=== PATIENT | female | born 1970 | race Caucasian/White ===

== ENCOUNTER 2018-07-30 10:18 | Emergency (ER) | payer BC, OTHER ==
--- NOTE | 2018-07-30 11:58 | RAD REPORT ---
EXAM DESCRIPTION: CT - Head Brain Wo Cont - 07/30/2018 11:46 am CLINICAL HISTORY: VISUAL DISTURBANCES Headache, drowsiness COMPARISON: No comparisons TECHNIQUE: All CT scans are performed using dose optimization technique as appropriate and may inclu de automated exposure control or mA/KV adjustment according to patient size. FINDINGS: No intracranial hemorrhage, hydrocephalus or extra-axial fluid collection.No areas of brai n edema or evidence of midline shift. The paranasal sinuses and mastoids are clear. The calvarium is intact. IMPRESSION: No acute intracranial abnormality.
--- NOTE | 2018-07-30 12:18 | RAD REPORT ---
EXAM DESCRIPTION: Chetna Negron (2 Views)07/30/2018 12:08 pm CLINICAL HISTORY: Hypertension COMPARISON: None FINDINGS: The lungs appear clear of acute infiltrate. The heart is normal size IMPRESSION: No acute abnormalities displayed
--- NOTE | 2018-07-30 13:40 | EDPHYS ---
Physician Documentation [facility] Name: Bisi Means Age: 48 yrs Sex: Female : 1970 Arrival Date: 07/30/2018 Time: 10:21 Bed 18 Private MD: Selvin Contreras ED Physician Roman Almazan HPI: 07/30 11:37 This 48 yrs old Female presents to ER via Ambulatory with complaints of snw Vision Problem, LIGHTHEADED. 11:37 Onset: The symptoms/episode began/occurred suddenly, this morning. Associated signs and snw symptoms: Pertinent positives: crescent shaped area of visual disturbance with both monocular and binocular vision. S/s improved since arrival. Modifying factors: The patient symptoms are alleviated by rest. The patient has not experienced similar symptoms in the past. The patient has been recently seen by a physician: a smart energy specialist. Doxazosin added to HCTZ and amlodipine 2 days ago. Pt states she was on Telmisartan for about two weeks and it caused a severe headache. 2 days ago that was changed to Doxazosin, it does cause a brief, lesser headache but it resolves. 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 tw2 Historical: - Allergies: 11:19 No Known Allergies; dm5 - Home Meds: 11:34 doxazosin 4 mg oral tab 1 tab once daily [Active]; hydrochlorothiazide 25 mg Oral tab 1 tw2 tab once daily [Active]; olmesartan oral 40 mg oral 1 tab [Active]; amlodipine 10 mg tab 1 tab nightly [Active]; - PMHx: 11:17 Hypertension; dm5 - PSHx: 11:34 None; tw2 - Immunization history:: Adult Immunizations. - Social history:: Smoking status: . - Ebola Screening: : Patient denies travel to an Ebola-affected area in the 21 days before illness onset. ROS: 11:41 Constitutional: Negative for fever, chills, and weight loss, ENT: Negative for injury, snw pain, and discharge, Neck: Negative for injury, pain, and swelling, Cardiovascular: Negative for chest pain, palpitations, and edema, Respiratory: Negative for shortness of breath, cough, wheezing, and pleuritic chest pain, Abdomen/GI: Negative for abdominal pain, nausea, vomiting, diarrhea, and constipation, Back: Negative for injury and pain, : Negative for injury, bleeding, discharge, and swelling, MS/Extremity: Negative for injury and deformity, Skin: Negative for injury, rash, and discoloration, Neuro: Negative for headache, weakness, numbness, tingling, and seizure. 11:41 Psych: Positive for anxiety. Exam: 11:41 Constitutional: This is a well developed, well nourished patient who is awake, alert, snw and in no acute distress. Head/Face: Normocephalic, atraumatic. Eyes: Pupils equal round and reactive to light, extra-ocular motions intact. Lids and lashes normal. Conjunctiva and sclera are non-icteric and not injected. Cornea within normal limits. Periorbital areas with no swelling, redness, or edema. ENT: Nares patent. No nasal discharge, no septal abnormalities noted. Tympanic membranes are normal and external auditory canals are clear. Oropharynx with no redness, swelling, or masses, exudates, or evidence of obstruction, uvula midline. Mucous membranes moist. Neck: Trachea midline, no thyromegaly or masses palpated, and no cervical lymphadenopathy. Supple, full range of motion without nuchal rigidity, or vertebral point tenderness. No Meningismus. Chest/axilla: Normal chest wall appearance and motion. Nontender with no deformity. No lesions are appreciated. Cardiovascular: Regular rate and rhythm with a normal S1 and S2. No gallops, murmurs, or rubs. Normal PMI, no JVD. No pulse deficits. Respiratory: Lungs have equal breath sounds bilaterally, clear to auscultation and percussion. No rales, rhonchi or wheezes noted. No increased work of breathing, no retractions or nasal flaring. Abdomen/GI: Soft, non-tender, with normal bowel sounds. No distension or tympany. No guarding or rebound. No evidence of tenderness throughout. Back: No spinal tenderness. No costovertebral tenderness. Full range of motion. Skin: Warm, dry with normal turgor. Normal color with no rashes, no lesions, and no evidence of cellulitis. MS/ Extremity: Pulses equal, no cyanosis. Neurovascular intact. Full, normal range of motion. Neuro: Awake and alert, GCS 15, oriented to person, place, time, and situation. Cranial nerves II-XII grossly intact. Motor strength 5/5 in all extremities. Sensory grossly intact. Cerebellar exam normal. Normal gait. Psych: Awake, alert, with orientation to person, place and time. Behavior, mood, and affect are within normal limits. Vital Signs: 11:17 BP 132 / 85; Pulse 88; Resp 16; Temp 97.1; Pulse Ox 99% on R/A; Weight 99.79 kg; Height dm5 5 ft. 7 in. (170.18 cm); Pain 4/10; 11:34 BP 122 / 73; Pulse 92; Resp 17; Pulse Ox 99% on R/A; tw2 12:31 BP 120 / 81; Pulse 81; Resp 18; Pulse Ox 100% on R/A; tw2 12:35 BP 110 / 72 Supine; Pulse 75; tw2 12:35 BP 115 / 78 Sitting; Pulse 75; tw2 12:35 BP 108 / 71 Standing; Pulse 85; tw2 13:11 BP 121 / 74; Pulse 74; Resp 17; Pulse Ox 100% on R/A; tw2 11:17 Body Mass Index 34.46 (99.79 kg, 170.18 cm) dm5 MDM: 11:14 Patient medically screened. snw 13:40 Data reviewed: vital signs, nurses notes. Data interpreted: Pulse oximetry: on room air snw is 100 %. Interpretation: normal. Counseling: I had a detailed discussion with the patient and/or guardian regarding: the historical points, exam findings, and any diagnostic results supporting the discharge/admit diagnosis. Special discussion: I have referred the patient to see his PCP for further evaluation of high blood pressure. Based on the history and exam findings, there is no indication for further emergent testing or inpatient evaluation. I discussed with the patient/guardian the need to see the smart energy specialist for further evaluation of the symptoms. I discussed with the patient/guardian the need to see the primary care provider for further evaluation of the symptoms. 07/30 11:28 Order name: CT Head Brain wo Cont; Complete Time: 12:02 snw 07/30 11:28 Order name: Chest Pa And Lat (2 Views) XRAY; Complete Time: 12:23 snw 07/30 12:23 Order name: Orthostatics; Complete Time: 12:35 snw Administered Medications: No medications were administered Disposition: 17:54 Co-signature as Attending Physician, Roman Almazan MD. rn Disposition: 07/30/18 13:38 Discharged to Home. Impression: Visual disturbances - resolved. - Condition is Stable. - Discharge Instructions: Hypertension, Visual Disturbances, Rehydration, Adult. - Medication Reconciliation Form, Thank You Letter, Antibiotic Education, Prescription Opioid Use, Work release form form. - Follow up: Selvin Contreras MD; When: 1 - 2 days; Reason: Recheck today's complaints, Continuance of care, Re-evaluation by your physician. Follow up: Emergency Department; When: As needed; Reason: Worsening of condition. Signatures: Dispatcher [employer] EDDory Max, RN RN dm5 Samantha Goodrich, TRAVEL OCCUPATIONAL THERAPIST-C TRAVEL OCCUPATIONAL THERAPIST-Csnw Roman Almazan MD MD rn Wise, Tara, RN RN tw2 Corrections: (The following items were deleted from the chart) 13:46 13:38 07/30/2018 13:38 Discharged to Home. Impression: Visual disturbances - resolved. tw2 Condition is Stable. Forms are Work release form, Medication Reconciliation Form, Thank You Letter, Antibiotic Education, Prescription Opioid Use. Follow up: Selvin Contreras; When: 1 - 2 days; Reason: Recheck today's complaints, Continuance of care, Re-evaluation by your physician. Follow up: Emergency Department; When: As needed; Reason: Worsening of condition. snw
--- NOTE | 2018-07-30 13:40 | ER ---
Nurse's Notes [facility] Name: Bisi Means Age: 48 yrs Sex: Female : 1970 Arrival Date: 07/30/2018 Time: 10:21 Bed 18 Private MD: Selvin Contreras Diagnosis: Visual disturbances-resolved Presentation: 07/30 11:05 Presenting complaint: Patient states: started a new blood pressure medication a couple dm5 of weeks ago. this morning my blood pressure was 133/98 and I took my medication and then it was 122/88. At about 0945 I started having blind spots in my vision. My aniline press worker said to go home and check my pressure and if it was normal to take my other medication and if it was low to come here but the hospital was closer so I just came here. Onset of symptoms was July 30, 2018 at 09:45. 11:05 Method Of Arrival: Ambulatory dm5 11:05 Acuity: SIDDHARTHA 3 dm5 11:23 Transition of care: patient was not received from another setting of care. Risk tw2 Assessment: Do you want to hurt yourself or someone else? Patient reports no desire to harm self or others. Initial Sepsis Screen: Does the patient meet any 2 criteria? No. Patient's initial sepsis screen is negative. Does the patient have a suspected source of infection? No. Patient's initial sepsis screen is negative. Care prior to arrival: None. Triage Assessment: 11:17 General: Appears in no apparent distress. Behavior is calm, cooperative. Pain: dm5 Complains of pain in headache Pain currently is 4 out of 10 on a pain scale. Pain began 2 hours ago. Neuro: Level of Consciousness is awake, alert, obeys commands, Oriented to person, place, time, Reports headache "blind spot in a C shape" crystals, prisms. Respiratory: Airway is patent Respiratory effort is even, unlabored, relaxed, Respiratory pattern is regular, symmetrical. Derm: Skin is pink, warm \\T\\ dry. 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 tw2 Historical: - Allergies: 11:19 No Known Allergies; dm5 - Home Meds: 11:34 doxazosin 4 mg oral tab 1 tab once daily [Active]; hydrochlorothiazide 25 mg Oral tab 1 tw2 tab once daily [Active]; olmesartan oral 40 mg oral 1 tab [Active]; amlodipine 10 mg tab 1 tab nightly [Active]; - PMHx: 11:17 Hypertension; dm5 - PSHx: 11:34 None; tw2 - Immunization history:: Adult Immunizations. - Social history:: Smoking status: . - Ebola Screening: : Patient denies travel to an Ebola-affected area in the 21 days before illness onset. Screenin:23 Abuse screen: Denies threats or abuse. Nutritional screening: No deficits noted. tw2 Tuberculosis screening: No symptoms or risk factors identified. Fall Risk None identified. Assessment: 11:24 Reassessment: provider at bedside at this time. tw2 11:36 General: Appears in no apparent distress. well groomed, Behavior is calm, cooperative, tw2 appropriate for age. Pain: Denies pain. Neuro: Level of Consciousness is awake, alert, obeys commands, Oriented to person, place, time, situation. Cardiovascular: Denies chest pain, shortness of breath, pt states lightheadedness has resolved Heart tones S1 S2. Respiratory: Airway is patent Respiratory effort is even, unlabored, Respiratory pattern is regular, symmetrical, Breath sounds are clear bilaterally. GI: No signs and/or symptoms were reported involving the gastrointestinal system. : No signs and/or symptoms were reported regarding the genitourinary system. EENT: No signs and/or symptoms were reported regarding the EENT system. Derm: No signs and/or symptoms reported regarding the dermatologic system. Skin is intact, is healthy with good turgor, Skin is dry, Skin temperature is warm. Musculoskeletal: Range of motion: intact in all extremities. 11:52 Reassessment: pt is in CT at this time. tw2 12:36 Reassessment: Patient appears in no apparent distress at this time. No changes from tw2 previously documented assessment. Patient and/or family updated on plan of care and expected duration. Pain level reassessed. Patient is alert, oriented x 3, equal unlabored respirations, skin warm/dry/pink. 13:12 Reassessment: Patient appears in no apparent distress at this time. No changes from tw2 previously documented assessment. Patient and/or family updated on plan of care and expected duration. Pain level reassessed. Patient is alert, oriented x 3, equal unlabored respirations, skin warm/dry/pink. 13:45 Reassessment: Patient appears in no apparent distress at this time. No changes from tw2 previously documented assessment. Patient and/or family updated on plan of care and expected duration. Pain level reassessed. Patient is alert, oriented x 3, equal unlabored respirations, skin warm/dry/pink. Vital Signs: 11:17 BP 132 / 85; Pulse 88; Resp 16; Temp 97.1; Pulse Ox 99% on R/A; Weight 99.79 kg; Height dm5 5 ft. 7 in. (170.18 cm); Pain 4/10; 11:34 BP 122 / 73; Pulse 92; Resp 17; Pulse Ox 99% on R/A; tw2 12:31 BP 120 / 81; Pulse 81; Resp 18; Pulse Ox 100% on R/A; tw2 12:35 BP 110 / 72 Supine; Pulse 75; tw2 12:35 BP 115 / 78 Sitting; Pulse 75; tw2 12:35 BP 108 / 71 Standing; Pulse 85; tw2 13:11 BP 121 / 74; Pulse 74; Resp 17; Pulse Ox 100% on R/A; tw2 11:17 Body Mass Index 34.46 (99.79 kg, 170.18 cm) dm5 ED Course: 10:21 Patient arrived in ED. sb2 10:22 Selvin Contreras MD is Private Physician. sb2 11:11 Triage completed. dm5 11:13 Samantha Goodrich [facility]NP-C [facility] snw 11:13 Roman Almazan MD is Attending Physician. snw 11:17 Arm band placed on right wrist. dm5 11:21 Lizbeth Moncada, ALTON is Primary Nurse. tw2 11:22 Bed in low position. Call light in reach. monitoring engineer on. Pulse ox on. NIBP on. tw2 11:42 CT completed. Patient tolerated procedure well. Patient moved to CT via wheelchair. sj Patient moved back from CT. 11:45 CT Head Brain wo Cont In Process Unspecified. EDMS 11:55 X-ray completed. Patient tolerated procedure well. Patient moved to radiology via jb2 wheelchair. 12:09 Chest Pa And Lat (2 Views) XRAY In Process Unspecified. EDMS 13:38 Selvin Contreras MD is Referral Physician. snw 13:46 No provider procedures requiring assistance completed. Patient did not have IV access tw2 during this emergency room visit. Administered Medications: No medications were administered Outcome: 13:38 Discharge ordered by MD. rogers 13:46 Discharged to home ambulatory. tw2 13:46 Condition: stable 13:46 Discharge instructions given to patient, Instructed on discharge instructions, follow up and referral plans. Demonstrated understanding of instructions, follow-up care. 13:46 Patient left the ED. tw2 Signatures: Dispatcher [employer] Dory Rosales, RN RN dm5 Samantha Goodrich, FINANCIAL RESERVE CLERK-C FINANCIAL RESERVE CLERK-Michaelw Brennan Bowers jb2 Marianne Santiago Tara, RN RN tw2 Lita Olivas2
== END 2018-07-30 13:46 | disposition home or self-care (01) ==
LOC: ER 10:18
DX: H53.9 Unspecified visual disturbance (principal); I10 Essential (primary) hypertension; Z79.899 Other long term (current) drug therapy
CPT/HCPCS: 70450; 71046; 99284

== ENCOUNTER 2018-10-28 00:30 | Emergency (ER) | payer BC ==
--- NOTE | 2018-10-28 03:49 | EDPHYS ---
Physician Documentation [facility] Name: Bisi Means Age: 48 yrs Sex: Female : 1970 Arrival Date: 10/28/2018 Time: 00:33 Bed 18 Private MD: Selvin Contreras ED Physician Alessandro Linder HPI: 10/28 03:37 This 48 yrs old Female presents to ER via Wheelchair with complaints of High gs Blood Pressure, Arm Pain. 03:37 The patient or guardian complains of pain, that is acute. The complaints affect the gs anterior aspect of left shoulder and left bicep. Onset: The symptoms/episode began/occurred yesterday. Modifying factors: the symptoms are aggravated by lifting weight, lifting arm. Associated signs and symptoms: Pertinent negatives: erythema, fever, numbness, weakness. Severity of symptoms: At their worst the symptoms were moderate, in the emergency department the symptoms have improved, mildly. The patient has not experienced similar symptoms in the past. 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 - Social history:: Smoking status: Patient/guardian denies using tobacco, Patient uses alcohol, occasionally. had 2 drinks tonight. - Ebola Screening: : No symptoms or risks identified at this time. ROS: 03:37 All other systems are negative. gs Exam: 03:37 Head/Face: Normocephalic, atraumatic. Eyes: Pupils equal round and reactive to light, gs extra-ocular motions intact. Lids and lashes normal. Conjunctiva and sclera are non-icteric and not injected. Cornea within normal limits. Periorbital areas with no swelling, redness, or edema. ENT: Nares patent. No nasal discharge, no septal abnormalities noted. Tympanic membranes are normal and external auditory canals are clear. Oropharynx with no redness, swelling, or masses, exudates, or evidence of obstruction, uvula midline. Mucous membranes moist. Neck: Trachea midline, no thyromegaly or masses palpated, and no cervical lymphadenopathy. Supple, full range of motion without nuchal rigidity, or vertebral point tenderness. No Meningismus. Chest/axilla: Normal chest wall appearance and motion. Nontender with no deformity. No lesions are appreciated. Cardiovascular: Regular rate and rhythm with a normal S1 and S2. No gallops, murmurs, or rubs. Normal PMI, no JVD. No pulse deficits. Respiratory: Lungs have equal breath sounds bilaterally, clear to auscultation and percussion. No rales, rhonchi or wheezes noted. No increased work of breathing, no retractions or nasal flaring. Abdomen/GI: Soft, non-tender, with normal bowel sounds. No distension or tympany. No guarding or rebound. No evidence of tenderness throughout. Back: No spinal tenderness. No costovertebral tenderness. Full range of motion. Skin: Warm, dry with normal turgor. Normal color with no rashes, no lesions, and no evidence of cellulitis. Neuro: Awake and alert, GCS 15, oriented to person, place, time, and situation. Cranial nerves II-XII grossly intact. Motor strength 5/5 in all extremities. Sensory grossly intact. Cerebellar exam normal. Normal gait. 03:37 Constitutional: The patient appears alert, awake. 03:37 Musculoskeletal/extremity: Extremities: noted in the anterior aspect of left shoulder and left bicep: tenderness, pain with abduction. 03:46 ECG was reviewed by the Attending Physician. Vital Signs: 00:40 BP 136 / 79; Pulse 72; Resp 16; Temp 97.6(T); Pulse Ox 100% on R/A; Weight 99.79 kg jb4 (R); Height 5 ft. 6 in. (167.64 cm) (R); Pain 4/10; 01:45 BP 119 / 71; Pulse 72; Resp 17 S; Pulse Ox 98% on R/A; cc3 02:32 BP 128 / 85; Pulse 65; Resp 18 S; Pulse Ox 98% on R/A; cc3 03:37 BP 121 / 77; Pulse 64; Resp 17 S; Pulse Ox 99% on R/A; cc3 00:40 Body Mass Index 35.51 (99.79 kg, 167.64 cm) jb4 MDM: 01:17 Patient medically screened. 03:37 Differential diagnosis: contusion, tendonitis, sprain. Data reviewed: vital signs, nurses notes. Counseling: I had a detailed discussion with the patient and/or guardian regarding: the historical points, exam findings, and any diagnostic results supporting the discharge/admit diagnosis, radiology results, the need for outpatient follow up. Response to treatment: the patient's symptoms have mildly improved after treatment, and as a result, I will discharge patient. 10/28 01:17 Order name: Shoulder Left (2 View) XRAY 10/28 01:17 Order name: EKG - Nurse/Tech; Complete Time: 01:51 EC:46 Rate is 67 beats/min. Rhythm is regular with borderline LVH. FL interval is normal. QRS gs interval is prolonged. T waves are Normal. No ST changes noted. Clinical impression: Abnormal EKG without significant change. Interpreted by me. Administered Medications: No medications were administered Disposition: 10/28/18 03:48 Discharged to Home. Impression: Pain in left upper arm. - Condition is Stable. - Discharge Instructions: Musculoskeletal Pain. - Medication Reconciliation Form, Thank You Letter, Antibiotic Education, Prescription Opioid Use form. - Follow up: Private Physician; When: 2 - 3 days; Reason: Re-evaluation by your physician. Signatures: Dispatcher [employer] Juventino Yeboah RN RN jb4 Alessandro Linder MD MD Magi Deutsch cc3 Corrections: (The following items were deleted from the chart) 03:55 03:48 10/28/2018 03:48 Discharged to Home. Impression: Pain in left upper arm. cc3 Condition is Stable. Forms are Medication Reconciliation Form, Thank You Letter, Antibiotic Education, Prescription Opioid Use. Follow up: Private Physician; When: 2 - 3 days; Reason: Re-evaluation by your physician.
--- NOTE | 2018-10-28 03:49 | ER ---
Nurse's Notes [facility] Name: Bisi Means Age: 48 yrs Sex: Female : 1970 Arrival Date: 10/28/2018 Time: 00:33 Bed 18 Private MD: Selvin Contreras Diagnosis: Pain in left upper arm Presentation: 10/28 00:40 Presenting complaint: Patient states: I had high blood pressure at home 1 hour before I jb4 came here. and my left arm was hurting from my elbow radiating to my neck. It felt like a dull aching pain that just got worse. 00:40 Transition of care: patient was not received from another setting of care. Onset of jb4 symptoms was October 27, 2018. Risk Assessment: Do you want to hurt yourself or someone else? Patient reports no desire to harm self or others. Initial Sepsis Screen: Does the patient meet any 2 criteria? No. Patient's initial sepsis screen is negative. Does the patient have a suspected source of infection? No. Patient's initial sepsis screen is negative. Care prior to arrival: None. 00:40 Method Of Arrival: Wheelchair jb4 00:40 Acuity: SIDDHARTHA 3 jb4 Triage Assessment: 00:51 General: Appears in no apparent distress. comfortable, Behavior is calm, cooperative, cc3 appropriate for age. Pain: Complains of pain in arm. EENT: No signs and/or symptoms were reported regarding the EENT system. Neuro: Level of Consciousness is awake, alert, obeys commands, Oriented to person, place, time, situation, Appropriate for age. Cardiovascular: Patient's skin is warm and dry. Respiratory: Airway is patent Respiratory effort is even, unlabored, Respiratory pattern is regular, symmetrical. GI: Abdomen is round non-distended. : No signs and/or symptoms were reported regarding the genitourinary system. Derm: No signs and/or symptoms reported regarding the dermatologic system. Musculoskeletal: Circulation, motion, and sensation intact. Range of motion: intact in all extremities. 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 - Social history:: Smoking status: Patient/guardian denies using tobacco, Patient uses alcohol, occasionally. had 2 drinks tonight. - Ebola Screening: : No symptoms or risks identified at this time. Screenin:51 Abuse screen: Denies threats or abuse. Denies injuries from another. Nutritional cc3 screening: No deficits noted. Tuberculosis screening: No symptoms or risk factors identified. Fall Risk Ambulatory Aid- None/Bed Rest/Nurse Assist (0 pts). Gait- Normal/Bed Rest/Wheelchair (0 pts) Mental Status- Oriented to own ability (0 pts). Assessment: 00:51 General: see triage assessment. cc3 01:20 Reassessment: Patient appears in no apparent distress at this time. Patient and/or cc3 family updated on plan of care and expected duration. Pain level reassessed. Patient is alert, oriented x 3, equal unlabored respirations, skin warm/dry/pink. 02:18 Reassessment: Patient appears in no apparent distress at this time. Patient and/or cc3 family updated on plan of care and expected duration. Pain level reassessed. Patient is alert, oriented x 3, equal unlabored respirations, skin warm/dry/pink. 03:37 Reassessment: Patient appears in no apparent distress at this time. Patient and/or cc3 family updated on plan of care and expected duration. Pain level reassessed. Patient is alert, oriented x 3, equal unlabored respirations, skin warm/dry/pink. 03:50 Reassessment: Dr. Linder discharged the patient home, no prescription given. No IV cc3 cannula in situ. Patient left ER vitally stable and ambulatory. Patient denies pain at this time. Patient states symptoms have improved. Vital Signs: 00:40 BP 136 / 79; Pulse 72; Resp 16; Temp 97.6(T); Pulse Ox 100% on R/A; Weight 99.79 kg jb4 (R); Height 5 ft. 6 in. (167.64 cm) (R); Pain 4/10; 01:45 BP 119 / 71; Pulse 72; Resp 17 S; Pulse Ox 98% on R/A; cc3 02:32 BP 128 / 85; Pulse 65; Resp 18 S; Pulse Ox 98% on R/A; cc3 03:37 BP 121 / 77; Pulse 64; Resp 17 S; Pulse Ox 99% on R/A; cc3 00:40 Body Mass Index 35.51 (99.79 kg, 167.64 cm) jb4 ED Course: 00:33 Patient arrived in ED. es 00:34 Selvin Contreras MD is Private Physician. es 00:40 Arm band placed on left wrist. jb4 00:46 Alessandro Linder MD is Attending Physician. gs 00:51 Magi Deutsch is Primary Nurse. cc3 00:51 Patient has correct armband on for positive identification. Bed in low position. Call cc3 light in reach. Side rails up X 1. general education instructor on. Pulse ox on. NIBP on. 01:07 Triage completed. jb4 01:37 Shoulder Left (2 View) XRAY In Process Unspecified. EDMS 03:50 No provider procedures requiring assistance completed. Patient did not have IV access cc3 during this emergency room visit. Administered Medications: No medications were administered Outcome: 03:48 Discharge ordered by . 03:50 Discharged to home ambulatory. cc3 03:50 Condition: stable 03:50 Discharge instructions given to patient, Instructed on discharge instructions, follow up and referral plans. Demonstrated understanding of instructions, follow-up care. 03:55 Patient left the ED. cc3 Signatures: Dispatcher [employer] EDMS Makayla Cerna James, ALTON RN jb4 Alessandro Linder MD MD Magi Deutsch cc3
--- NOTE | 2018-10-28 11:44 | RAD REPORT ---
EXAM DESCRIPTION: RAD - Shoulder Left 2 View - 10/28/2018 1:37 am CLINICAL HISTORY: PAIN Arm pain and swelling COMPARISON: No comparisons FINDINGS: Small olecranon spur is present. No fracture or dislocation seen.
--- NOTE | 2018-10-30 11:30 | EKG ---
Test Date: 2018-10-28 Test Time: 01:43:45 Emergency Response Coordinator: RJ MEASUREMENT RESULTS: Intervals: Rate: 67 AL: 172 QRSD: 114 QT: 440 QTc: 464 [place]: P: 38 AL: 172 QRS: -4 T: 6 INTERPRETIVE STATEMENTS: Normal sinus rhythm Minimal voltage criteria for LVH, may be normal variant Borderline ECG No previous ECG available for comparison Electronically Signed On 10-28-18 10:48:46 CDT by Andrea Olivares
== END 2018-10-28 03:55 | disposition home or self-care (01) ==
LOC: ER 00:30
DX: M79.622 Pain in left upper arm (principal); I10 Essential (primary) hypertension
CPT/HCPCS: 93005; 99284